=== PATIENT | female | born 2000 | race Caucasian/White ===

== ENCOUNTER 2021-10-01 14:16 | Inpatient (IN) | payer BC ==
[~2021-10-01 14:16] MED LIST: Bupivacaine 0.25% 10 ML SDV ONE
[2021-10-01] MEDS ORDERED: Calcium Carbonate 500 MG Tab.Chew PO PRN (14:27)
[2021-10-01] MEDS ORDERED: Ondansetron 4 MG/2 ML SDV IVPUSH PRN (14:45)
[2021-10-01] MEDS ORDERED: Acetaminophen 325 MG Tab PO PRN (14:45)
[2021-10-01] MEDS ORDERED: Nalbuphine HCl 10 MG/ 1ML Amp IVPUSH PRN (14:45)
[2021-10-01] MEDS ORDERED: Calcium Gluconate 10% 1 GM/10 ML SDV IV PRN (14:45)
[2021-10-01] MEDS ORDERED: Oxytocin/Lactated Ringers 10 UNIT/1,000 ML BAG IV SCH (14:45)
[2021-10-01] MEDS: Lactated Ringers 1,000 ML IV SCH (14:55)
[2021-10-01] MEDS: Magnesium Sulfate/Water 40 GM/1,000 ML BAG IV SCH (14:56)
[2021-10-01] MEDS: Betamethasone Acetate/Betamethasone Sod Phosphate 30 MG/5 ML MDV IM SCH (15:00)
[2021-10-01] MEDS ORDERED: Misoprostol 25 MCG (1/4 of 100 MCG) Tab VAG ONE (15:30)
[2021-10-01] MEDS: Misoprostol 25 MCG (1/4 of 100 MCG) Tab VAG PRN (19:58)
[2021-10-01] MEDS ORDERED: fentaNYL 100 MCG/2 ML SDV EPIDUR PRN (21:58)
[2021-10-01] MEDS ORDERED: ePHEDrine 50 MG/ML SDV IVPUSH PRN (21:58)
[2021-10-01] MEDS ORDERED: diphenhydrAMINE 50 MG/ML SDV IVPUSH PRN (21:58)
[2021-10-01] MEDS ORDERED: Bupivacaine/fentaNYL/NS 100 ML Bag EPIDUR PRN (21:58)
[2021-10-02] MEDS: Misoprostol 25 MCG (1/4 of 100 MCG) Tab VAG PRN ×2 (00:05→03:58)
[2021-10-02] MEDS: Lactated Ringers 1,000 ML IV SCH ×2 (03:52→17:39)
[2021-10-02] MEDS ORDERED: Oxytocin/Lactated Ringers 10 UNIT/1,000 ML BAG IV SCH (08:15)
[2021-10-02] MEDS: Magnesium Sulfate/Water 40 GM/1,000 ML BAG IV SCH (10:50)
[2021-10-02] MEDS: Betamethasone Acetate/Betamethasone Sod Phosphate 30 MG/5 ML MDV IM SCH ×2 (12:20→15:07)
[2021-10-02] MEDS ORDERED: Misoprostol 200 MCG Tab ONE (16:22)
[2021-10-02] MEDS ORDERED: Misoprostol 200 MCG Tab PO STA (16:32)
[2021-10-02] MEDS ORDERED: Witch Hazel Medicated Pads 40/Jar TOP PRN (18:35)
[2021-10-02] MEDS ORDERED: Acetaminophen 325 MG Tab PO PRN (18:35)
[2021-10-02] MEDS ORDERED: Docusate Sodium 100 MG Cap PO PRN (18:35)
[2021-10-02] MEDS ORDERED: Ibuprofen 600 MG Tab PO PRN (18:35)
[2021-10-02] MEDS ORDERED: Benzocaine/Menthol 20%-0.5% Spray 78 GM Cannister TOP PRN (18:35)
[2021-10-03] MEDS: Magnesium Sulfate/Water 40 GM/1,000 ML BAG IV SCH (10:08)
== END 2021-10-04 15:05 | disposition home or self-care (01) | DRG 560 ==
LOC: JD.OBCHECK 14:16 → JD.OB 14:21 → JD.OBCHECK 14:44 → JD.OB 14:44 → OBSVTOIN 16:32 → JD.OB 10-02 16:11
PROVIDERS: ADMIT Obstetrics & Gynecology; ATTEND Obstetrics & Gynecology
PROC: 10907ZC Drainage of Amniotic Fluid, Therapeutic from Products of Conception, Via Natural or Artificial Opening (ICD-10-PCS; principal; 2021-10-02)
PROC: 10E0XZZ Delivery of Products of Conception, External Approach (ICD-10-PCS; 2021-10-02)
PROC: 3E033VJ Introduction of Other Hormone into Peripheral Vein, Percutaneous Approach (ICD-10-PCS; 2021-10-02)
PROC: 0KQM0ZZ Repair Perineum Muscle, Open Approach (ICD-10-PCS; 2021-10-02)
PROC: 3E0R3BZ Introduction of Anesthetic Agent into Spinal Canal, Percutaneous Approach (ICD-10-PCS; 2021-10-02)
PROC: 00HU33Z Insertion of Infusion Device into Spinal Canal, Percutaneous Approach (ICD-10-PCS; 2021-10-02)
DX: O14.14 Severe pre-eclampsia complicating childbirth (principal); Z37.0 Single live birth; Z3A.36 36 weeks gestation of pregnancy; O69.81X0 Labor and delivery complicated by cord around neck, without compression, not applicable or unspecified; O70.1 Second degree perineal laceration during delivery
CPT/HCPCS: 36415; 51702; 59025; 59409; 82565; 82570; 83735; 84156; 84450; 84460; 85027; 86592; 86850; 86900; 86901; A9270-GY; J0702; J2590; J3010; J3475; J3490; J7120

== ENCOUNTER 2023-06-17 13:45 | Inpatient (IN) | payer BC ==
[~2023-06-17 13:45] MED LIST changes: -Bupivacaine 0.25% 10 ML SDV ONE; +Lidocaine 1% 10 ML MDV ONE
[2023-06-17] MEDS ORDERED: Ondansetron 4 MG/2 ML SDV IVPUSH PRN (13:47)
[2023-06-17] MEDS ORDERED: Sodium Chloride 0.9% 10 ML Syringe FLUSH PRN (13:47)
[2023-06-17] MEDS ORDERED: Lidocaine 1% 50 ML MDV INJECT PRN (13:47)
[2023-06-17] MEDS ORDERED: Nalbuphine HCl 10 MG/ 1ML Amp IVPUSH PRN (13:47)
[2023-06-17] MEDS ORDERED: Oxytocin/Lactated Ringers 30 UNIT/500 ML BAG IV SCH (14:00)
[2023-06-17] MEDS: Lactated Ringers 1,000 ML IV SCH (14:00)
[2023-06-17 14:12] LABS: BASOPHILS PERCENT AUTO 0.2 % (0.0-1.0); EOSINOPHILS ABSOLUTE AUTO 0.1 K/mm3 (0.0-0.4); EOSINOPHILS PERCENT AUTO 1.1 % (0.0-6.0); HEMATOCRIT 34.5 % (37.0-47.0); HEMOGLOBIN 10.8 gm/dl (12.0-16.0); IMMATURE GRAN ABSOLUTE AUTO 0.03 K/mm3 (0.00-0.05); IMMATURE GRAN PERCENT AUTO 0.5 % (0.0-0.4); LYMPHOCYTES ABSOLUTE AUTO 1.4 K/mm3 (1.0-4.8); MEAN CORPUSCULAR HEMOGLOBIN 24.3 pg (28.0-32.0); MEAN CORPUSCULAR HGB CONC 31.3 g/dl (32.0-36.0); MEAN CORPUSCULAR VOLUME 77.7 fl (83.0-99.0); MEAN PLATELET VOLUME 9.9 fl (9.4-12.3); MONOCYTES ABSOLUTE AUTO 0.4 K/mm3 (0.0-0.8); MONOCYTES PERCENT AUTO 5.7 % (0.0-8.0); NEUTROPHILS ABSOLUTE AUTO 4.7 K/mm3 (1.8-7.7); NEUTROPHILS PERCENT AUTO 71.5 % (41.0-71.0); PLATELET COUNT,PLT 200 K/mm3 (150-400); RED BLOOD CELL COUNT 4.44 M/mm3 (4.10-5.30); WHITE BLOOD CELL COUNT,WBC 6.62 K/mm3 (3.9-11.3)
[2023-06-17] MEDS: Oxytocin/Lactated Ringers 30 UNIT/500 ML BAG IV SCH (14:50)
[2023-06-17 14:53] LABS: CREATININE 0.6 mg/dL (0.55-1.02); EST CRCL DRUG DOSING (CG) 149.79 mL/min
[2023-06-17 15:19] LABS: ALANINE AMINOTRANSFERASE,ALT 12 U/L (14-59); ASPARTATE AMNIOTRANSFERASE,AST 11 U/L (15-37)
[2023-06-17 17:02] LABS: CREATININE,URINE RAND 70.7 mg/dL (30.0-125.0); PROTEIN CREATININE RATIO,URINE 995.8 mg/g (0-149); PROTEIN,URINE RANDOM 70.4 mg/dL (0.0-11.8)
[2023-06-17] MEDS ORDERED: ePHEDrine 50 MG/ML SDV IVPUSH PRN (17:19)
[2023-06-17] MEDS ORDERED: diphenhydrAMINE 50 MG/ML SDV IVPUSH PRN (17:19)
[2023-06-17] MEDS ORDERED: Phenylephrine 1% 10 MG/ML SDV IVPUSH PRN (17:19)
[2023-06-17] MEDS: Bupivacaine/fentaNYL/NS 100 ML Bag EPIDUR PRN (19:46)
[2023-06-17] MEDS: fentaNYL 100 MCG/2 ML SDV EPIDUR PRN (19:46)
[2023-06-18] MEDS: Witch Hazel Medicated Pads 40/Jar TOP PRN (01:29)
[2023-06-18] MEDS: Benzocaine/Menthol 20%-0.5% Spray 78 GM Cannister TOP PRN (01:29)
[2023-06-18] MEDS: Sodium Chloride 0.9% 10 ML Syringe FLUSH SCH (06:43)
[2023-06-18] MEDS: Acetaminophen 325 MG Tab PO PRN (08:32)
[2023-06-18] MEDS: Ibuprofen 600 MG Tab PO PRN (20:48)
== END 2023-06-19 16:00 | disposition home or self-care (01) | DRG 560 ==
LOC: JD.OB 13:45 → OBSVTOIN 21:13 → JD.OB 21:14
PROVIDERS: ADMIT Obstetrics & Gynecology; ATTEND Obstetrics & Gynecology
PROC: 10E0XZZ Delivery of Products of Conception, External Approach (ICD-10-PCS; principal; 2023-06-17)
PROC: 10907ZC Drainage of Amniotic Fluid, Therapeutic from Products of Conception, Via Natural or Artificial Opening (ICD-10-PCS; 2023-06-17)
PROC: 3E0R3BZ Introduction of Anesthetic Agent into Spinal Canal, Percutaneous Approach (ICD-10-PCS; 2023-06-17)
PROC: 0KQM0ZZ Repair Perineum Muscle, Open Approach (ICD-10-PCS; 2023-06-17)
PROC: 3E033VJ Introduction of Other Hormone into Peripheral Vein, Percutaneous Approach (ICD-10-PCS; 2023-06-17)
PROC: 00HU33Z Insertion of Infusion Device into Spinal Canal, Percutaneous Approach (ICD-10-PCS; 2023-06-17)
DX: O14.04 Mild to moderate pre-eclampsia, complicating childbirth (principal); O70.1 Second degree perineal laceration during delivery; Z37.0 Single live birth; Z3A.38 38 weeks gestation of pregnancy
CPT/HCPCS: 36415; 51702; 59025; 59409; 82565; 82570; 84156; 84450; 84460; 85025; 86592; 86850; 86900; 86901; A9270-GY; J3010; J3490; J7120; J7999